=== PATIENT | male | born 1945 | race Caucasian/White ===

== ENCOUNTER 2016-04-05 10:46 | Outpatient (CLI) | payer OTHER ==
--- NOTE | 2016-04-05 12:51 | DIAGNOSTIC IMAGING REPORT ---
PROCEDURE: US BILATERAL CAROTID DOPPLER INDICATION: BRUITS, PVD TECHNIQUE: Color Doppler duplex imaging of the carotid and vertebral vessels. COMPARISON: None. 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 Left carotid system: No significant stenosis visualized. The waveforms are normal. There is mild to moderate plaque formation in the bifurcation Vertebral System: Antegrade vertebral artery flow bilaterally. Right common carotid artery peak systolic velocity 61 cm/second. Right internal carotid artery peak systolic velocity zero cm/second. Right external carotid artery peak systolic velocity 261 cm/second. Right zlmccywd-eh-wbnjpc carotid artery ratio 2.0 Right vertebral artery peak systolic velocity 50 cm/second. Left common carotid artery peak systolic velocity 51 cm/second. Left internal carotid artery peak systolic velocity 86 cm/second. Left external carotid artery peak systolic velocity 116 cm/second. Left lqunyzwx-is-dekbse carotid artery ratio 1.7 Left vertebral artery peak systolic velocity 47 cm/second. IMPRESSION: 1. Right internal carotid artery occlusion. High-grade stenosis right external carotid. Widely patent left internal carotid artery. 2. Antegrade vertebral artery flow bilaterally. Velocity criteria are extrapolated from diameter data as defined by the Society of Radiologists in Ultrasound Consensus Conference, Radiology 2003; 229; 340-346.
--- NOTE | 2016-04-05 12:51 | DIAGNOSTIC IMAGING REPORT ---
PROCEDURE: US BILATERAL CAROTID DOPPLER INDICATION: BRUITS, PVD TECHNIQUE: Color Doppler duplex imaging of the carotid and vertebral vessels. COMPARISON: None. 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 Left carotid system: No significant stenosis visualized. The waveforms are normal. There is mild to moderate plaque formation in the bifurcation Vertebral System: Antegrade vertebral artery flow bilaterally. Right common carotid artery peak systolic velocity 61 cm/second. Right internal carotid artery peak systolic velocity zero cm/second. Right external carotid artery peak systolic velocity 261 cm/second. Right edngvghr-zo-cuggab carotid artery ratio 2.0 Right vertebral artery peak systolic velocity 50 cm/second. Left common carotid artery peak systolic velocity 51 cm/second. Left internal carotid artery peak systolic velocity 86 cm/second. Left external carotid artery peak systolic velocity 116 cm/second. Left pplrvsah-yv-athphw carotid artery ratio 1.7 Left vertebral artery peak systolic velocity 47 cm/second. IMPRESSION: 1. Right internal carotid artery occlusion. High-grade stenosis right external carotid. Widely patent left internal carotid artery. 2. Antegrade vertebral artery flow bilaterally. Velocity criteria are extrapolated from diameter data as defined by the [employer] of [employer]ologists in Ultrasound Consensus Conference, Radiology 2003; 229; 340-346.
== END 2016-04-05 23:00 ==
LOC: US SRH 10:46
DX: I65.21 Occlusion and stenosis of right carotid artery (principal)